=== PATIENT | male | born 1965 | race Two or more races ===

== ENCOUNTER 2016-08-21 20:45 | Emergency (ER) | payer OTHER ==
[~2016-08-21] VITALS: Ht 185.4 cm; Wt 81.5 kg
[2016-08-21] MEDS ORDERED: DEPAKOTE ER500 MG PO (22:16)
[2016-08-21] MEDS ORDERED: BACLOFEN10 MG PO (22:17)
[2016-08-21 23:11] LABS: HEMATOCRIT 45.9 % (38.0-50.0); MCHC 33.8 G/DL (30.0-36.0); MEAN PLAT.VOLUME 11.1 uM^3 (9.0-12.4); PLATELET COUNT 133 K/uL (156-360); RBC DIS.WIDTH-CV 12.8 % (11.8-14.6); RBC DIS.WIDTH-SD 40.9 % (39-53); RED BLOOD COUNT 5.16 M/uL (4.00-5.50)
[2016-08-21 23:21] LABS: EOSINOPHIL (%) 0 % (0-5); IMMATURE GRANULOCYTE (%) 0.7 % (0.0-0.7); IMMATURE GRANULOCYTE COUNT 0.2 K/uL; LYMPHOCYTE COUNT 0.6 K/uL (1.0-2.8); MONOCYTE (%) 19.9 % (3-12); MONOCYTE COUNT 0.6 K/uL (0-0.8); NEUTROPHIL (%) 58.4 % (45-76); NEUTROPHIL COUNT 1.7 K/uL (1.8-6.4)
[2016-08-21 23:22] LABS: CHLORIDE 107 mEq/L (99-109); POTASSIUM 4.7 mEq/L (3.7-5.4); SODIUM 139 mEq/L (136-147)
[2016-08-21 23:25] LABS: GLUCOSE 86 mg/dL (70-99)
[2016-08-21 23:26] LABS: ANION GAP 9 MEQ/L (2-14)
[2016-08-21 23:27] LABS: TOTAL BILIRUBIN 0.5 mg/dL (0.0-1.0)
[2016-08-21 23:28] LABS: ALKALINE PHOSPHATASE 50 IU/L (3-129); GFR ESTIMATE (CALCULATED) > 59 mL/min/
[2016-08-21 23:29] LABS: UREA NITROGEN (BUN) 17 mg/dL (9-23)
[2016-08-21 23:32] LABS: LIPASE 33 U/L (1.0-51.0)
[2016-08-21 23:51] LABS: ADD MIUA? NO; BILIRUBIN NEGATIVE; BLOOD NEGATIVE; COLOR DK YELLOW ((YELLOW)); GLUCOSE (STRIP) NEGATIVE; KETONES TRACE; LEUKOCYTES NEGATIVE; NITRITE NEGATIVE; PH, URINE 6.5 (5-8); PROTEIN (STRIP) TRACE; SPECIFIC GRAVITY 1.031 (1.000-1.030); UCUL ADDED? NO
[2016-08-22 00:30] LABS: INFLUENZA A VIRAL ANTIGEN POSITIVE; INFLUENZA B VIRAL ANTIGEN NEGATIVE
[2016-08-22 00:42] VITALS: BP 100/61
== END 2016-08-22 00:58 | disposition home or self-care (01) ==
LOC: EME 20:45
PROVIDERS: Emergency Medicine
DX: J10.1 Influenza due to other identified influenza virus with other respiratory manifestations (principal); R51 Headache; R74.0 Nonspecific elevation of levels of transaminase and lactic acid dehydrogenase [LDH]; D72.819 Decreased white blood cell count, unspecified; R00.0 Tachycardia, unspecified
CPT/HCPCS: 80053; 81003; 83690; 85025; 87502; 99281; 99284; J0780; J1885; J7030